=== PATIENT | male | born 1945 | race Caucasian/White ===

== ENCOUNTER 2017-10-14 08:54 | Day surgery (SDC) | payer OTHER ==
[~2017-10-14] VITALS: Ht 167.6 cm; Wt 95.0 kg
[~2017-10-14 08:54] MED LIST: APRESOLINE50 MG PO; ASPIR-TRIN325 M1 PO; GLUCOTROL5 MG PO; LASIX40 MG PO; LIPITOR20 MG PO; NEURONTIN100 MG PO; PROCARDIA XL60 MG PO; RENVELA800 MG PO; TENORMIN50 MG PO; TOUJEO SOL300 UNIT/1 SC; ZYLOPRIM100 MG PO
[2017-10-14 09:38] LABS: HEMATOCRIT 38.5 % (38.0-50.0); HEMOGLOBIN 12.9 G/DL (12.5-16.6); MCH 33.2 PG (29.0-34.0); MCHC 33.5 G/DL (30.0-36.0); PLATELET COUNT 248 K/uL (156-360); RBC DIS.WIDTH-CV 14.7 % (11.8-14.6); RED BLOOD COUNT 3.89 M/uL (4.00-5.50); WHITE BLOOD COUNT 7.6 K/uL (4.1-10.2)
[2017-10-14 10:05] VITALS: BP 122/71
[2017-10-14 11:13] LABS: CHLORIDE 97 MEQ/L (99-109); CREATININE 7.9 MG/DL (0.6-1.3); GFR ESTIMATE (CALCULATED) 7 mL/min/ (58.99-99999); GLUCOSE 85 mg/dL (70-99); SODIUM 136 MEQ/L (136-147); UREA NITROGEN (BUN) 45 mg/dL (9-23)
[2017-10-14 11:14] LABS: POTASSIUM 6.1 MEQ/L (3.7-5.4)
[2017-10-14 17:25] VITALS: BP 136/67
[2017-10-14 18:25] VITALS: BP 141/71
== END 2017-10-14 18:40 | disposition home or self-care (01) ==
LOC: SDC 08:54
PROVIDERS: Surgery
DX: I13.11 Hypertensive heart and chronic kidney disease without heart failure, with stage 5 chronic kidney disease, or end stage renal disease (principal); E11.22 Type 2 diabetes mellitus with diabetic chronic kidney disease; N18.6 End stage renal disease; Z99.2 Dependence on renal dialysis; E78.00 Pure hypercholesterolemia, unspecified; J45.909 Unspecified asthma, uncomplicated; Z79.82 Long term (current) use of aspirin; Z79.4 Long term (current) use of insulin
CPT/HCPCS: 80048; 82948; 84132 91; 85027; 87641; J0610; J0690; J1100; J1644; J2250; J2405; J2720; J3010; S0020

== ENCOUNTER 2017-11-04 09:31 | Day surgery (SDC) | payer OTHER, MEDICARE ==
[~2017-11-04] VITALS: Ht 167.6 cm; Wt 93.0 kg
== END 2017-11-04 12:24 | disposition home or self-care (01) ==
LOC: CATH 09:31
PROVIDERS: Surgery
DX: T82.858A Stenosis of other vascular prosthetic devices, implants and grafts, initial encounter (principal); I12.0 Hypertensive chronic kidney disease with stage 5 chronic kidney disease or end stage renal disease; E11.22 Type 2 diabetes mellitus with diabetic chronic kidney disease; N18.6 End stage renal disease; Z99.2 Dependence on renal dialysis; Z79.4 Long term (current) use of insulin; Z79.82 Long term (current) use of aspirin; E78.5 Hyperlipidemia, unspecified; M19.90 Unspecified osteoarthritis, unspecified site; J45.909 Unspecified asthma, uncomplicated; Z82.49 Family history of ischemic heart disease and other diseases of the circulatory system; Y83.2 Surgical operation with anastomosis, bypass or graft as the cause of abnormal reaction of the patient, or of later complication, without mention of misadventure at the time of the procedure
CPT/HCPCS: 82948; 87641; C1725; C1769; C1894; J1644; J2250